=== PATIENT | male | born 1995 | race Caucasian/White ===

== ENCOUNTER 2019-05-29 09:25 | Emergency (ER) | payer MEDICAID, OTHER ==
[~2019-05-29] VITALS: Ht 193 cm; Wt 123.5 kg
[2019-05-29 09:29] VITALS: BP 125/74
[2019-05-29] MEDS ORDERED: IBUPROFEN 200 MG TABLET PO ONE (10:00)
[2019-05-29] MEDS ORDERED: HYDROcodone/APAP 5/325 TABLET PO ONE (10:00)
[2019-05-29] MEDS ORDERED: IBUPROFEN 200 MG TABLET ONE (10:02)
[2019-05-29] MEDS ORDERED: HYDROcodone/APAP 5/325 TABLET ONE (10:02)
[2019-05-29 10:28] LABS: BASOPHILS # (AUTO) 0.05 x10^3/uL (0-0.1); BASOPHILS % (AUTO) 1 % (0-1); EOSINOPHILS # (AUTO) 0.06 x10^3/uL (0-0.4); EOSINOPHILS % (AUTO) 1 % (1-7); LYMPHOCYTES # (AUTO) 1.44 x10^3/uL (1-3.4); LYMPHOCYTES % (AUTO) 23 % (22-44); MD NO; MEAN CORPUSCULAR HEMOGLOBIN 30.3 pg (27.5-34.5); MEAN CORPUSCULAR HGB CONC 33.7 g/dL (33.2-36.2); MEAN PLATELET VOLUME 7.4 fL (7.4-10.4); MONOCYTES # (AUTO) 0.59 x10^3/uL (0.2-0.8); MONOCYTES % (AUTO) 10 % (2-9); NEUTROPHILS # (AUTO) 4.03 x10^3/uL (1.8-6.8); NEUTROPHILS % (AUTO) 65 % (42-75); PLATELET COUNT 222 x10^3/uL (130-400); RED CELL DISTRIBUTION WIDTH 13.1 % (9.4-14.8)
[2019-05-29 10:38] LABS: ALBUMIN 3.8 g/dL (3.4-5.0); ANION GAP 8 mmol/L (5-15); CALCIUM 9.1 mg/dL (8.5-10.1); CHLORIDE 108 mmol/L (98-107); CREATININE 1.25 mg/dL (0.7-1.3)
[2019-05-29] MEDS ORDERED: LIDOCAINE-MPF 1%, 5ML ONE (11:16)
[2019-05-29] MEDS ORDERED: LIDOCAINE 1%-EPI 1:100K, 20ML SQ ONE (11:30)
== END 2019-05-29 12:00 | disposition home or self-care (01) ==
LOC: ED 11:40
DX: L02.416 Cutaneous abscess of left lower limb (principal)
CPT/HCPCS: 10060; 36415; 80048; 82040; 85025; 99284

== ENCOUNTER 2019-05-31 10:24 | Emergency (ER) | payer MEDICAID ==
[~2019-05-31] VITALS: Ht 193 cm; Wt 125.8 kg
[2019-05-31 10:33] VITALS: BP 136/76
--- NOTE | 2019-05-31 12:10 | NUR ---
wound right thigh repacked by pa and d/c given
== END 2019-05-31 12:11 ==
LOC: ED 12:05
DX: Z48.01 Encounter for change or removal of surgical wound dressing (principal); F17.200 Nicotine dependence, unspecified, uncomplicated
CPT/HCPCS: 99282